=== PATIENT | female | born 1990 | race Caucasian/White ===

== ENCOUNTER 2018-08-28 10:42 | Emergency (ER) | payer OTHER ==
[~2018-08-28] VITALS: Ht 157.5 cm; Wt 74.8 kg
[2018-08-28 10:52] VITALS: BP 135/70
--- NOTE | 2018-08-28 10:55 | NUR ---
PATIENT PRESENTS TO ED WITH C/O MULTIPLE BUG BITES , PRURITUS X 2 DAYS PT ADDS SLEPT OVER FRIENDS HOUSE ON WEDNESDAY ALONG WITH SONS AND ALL AWOKE WITH MULITPLE BUG BITES THROUGH OUT AND SEVERE PRURITUS DENIES N/V/D; AAOX4 WITH EVEN AND STEADY GAIT; LUNGS CLEAR BL; HR EVEN AND REGULAR; PT DENIES ANY FEVER, CP, SOB, OR COUGH AT THIS TIME; PATIENT STATES PAIN OF 0/10 AT THIS TIME; VSS; PATIENT POSITIONED FOR COMFORT; HOB ELEVATED; BEDRAILS UP X2; BED DOWN. ER MD MADE AWARE OF PT STATUS.
--- NOTE | 2018-08-28 12:00 | NUR ---
Patient discharged with v/s stable. Written and verbal after care instructions given and explained. Patient alert, oriented and verbalized understanding of instructions. Ambulatory with steady gait. All questions addressed prior to discharge. ID band removed. Patient advised to follow up with PMD. Rx of PREDNISONE/BENADRYL given. Patient educated on indication of medication including possible reaction and side effects. Opportunity to ask questions provided and answered.
[2018-08-28 12:01] VITALS: BP 128/76
== END 2018-08-28 12:00 | disposition home or self-care (01) ==
LOC: MED 10:42
DX: R21 Rash and other nonspecific skin eruption (principal)
CPT/HCPCS: 99283

== ENCOUNTER 2020-04-25 23:13 | Emergency (ER) | payer MEDICAID, OTHER ==
[~2020-04-25] VITALS: Ht 157.5 cm; Wt 68.0 kg
[2020-04-25 23:16] VITALS: BP 121/73
--- NOTE | 2020-04-25 23:29 | NUR ---
29 Y/O FEMALE C/O ABD CRAMPING X THIS MORNING. PT STATES SHE IS 5 WKS AND STARTED HAVING LOWER ABD CRAMPING. PT DENIES VAGINAL BLEEDING, VAGINAL DISCHARGE. PT DENIES N/V/D. PT HAS HAD 1 , 1 MISCARRIAGE. PT BREATHING EVEN AND UNLABORED. VSS. PT RESTING IN BED AT LOWEST POSITION, HOB ELEVATED, SIDE RAIL X1. PMH: NONE RX: NONE NKA
--- NOTE | 2020-04-25 23:31 | NUR ---
PT AMBULATED TO RESTROOM W/ STEADY GAIT.
[2020-04-26 00:11] LABS: BASOPHILS % (AUTO) 0.4 % (0.0-2.0); EOSINOPHILS # (AUTO) 0.2 K/uL (0-0.4); EOSINOPHILS % (AUTO) 2.6 % (0.0-4.0); HEMATOCRIT 39.4 % (36-48); LYMPHOCYTES # (AUTO) 2.4 K/uL (2.5-16.5); LYMPHOCYTES % (AUTO) 29.6 % (20.5-51.1); MEAN CORPUSCULAR HEMOGLOBIN 30 pg (27-31); MEAN CORPUSCULAR HGB CONC 33 g/dL (33-37); MEAN CORPUSCULAR VOLUME 90.9 fL (80-94); MONOCYTES # (AUTO) 0.6 K/uL (0.8-1.0); MONOCYTES % (AUTO) 7.4 % (1.7-9.3); NEUTROPHILS # (AUTO) 4.9 K/uL (1.8-7.7); PLATELET COUNT (AUTO) 282 K/uL (140-450); RED BLOOD CELL COUNT(AUTO) 4.33 MIL/uL (4.20-5.40); RED CELL DISTRIBUTION WIDTH 13.7 % (11.6-13.7); WHITE BLOOD COUNT (AUTO) 8.2 K/uL (4.8-10.8)
[2020-04-26 00:19] LABS: APPEARANCE,URINE HAZY (CLEAR); BILIRUBIN,URINE NEGATIVE (NEGATIVE); BLOOD, URINE NEGATIVE (NEGATIVE); COLOR,URINE YELLOW (YELLOW); LEUKOCYTE ESTERASE ,URINE TRACE (NEGATIVE); NITRITE, URINE NEGATIVE (NEGATIVE); UGLUCOSE NEGATIVE (NEGATIVE)
--- NOTE | 2020-04-26 00:19 | NUR ---
DR. THACKER AT BEDSIDE FOR EVALUATION.
[2020-04-26 00:40] LABS: RBC,URINE 0-5 /HPF (0-5)
--- NOTE | 2020-04-26 01:13 | NUR ---
PT SLEEPING IN BED, LOCKED AND AT LOWEST POSITION, HOB ELEVATED , SIDE RAILS X1.
--- NOTE | 2020-04-26 01:29 | NUR ---
US AT BEDSIDE.
[2020-04-26 01:52] VITALS: BP 128/80
== END 2020-04-26 01:52 | disposition home or self-care (01) ==
LOC: MED 23:13
DX: O23.41 Unspecified infection of urinary tract in pregnancy, first trimester (principal); O20.0 Threatened abortion; R10.30 Lower abdominal pain, unspecified; Z3A.01 Less than 8 weeks gestation of pregnancy; Z98.890 Other specified postprocedural states
CPT/HCPCS: 36415; 76817; 81001; 81025; 84702; 85025; 86900; 86901; 87086; 99284; Q0092; 99283

== ENCOUNTER 2020-05-06 15:56 | Emergency (ER) | payer MEDICAID ==
[~2020-05-06] VITALS: Ht 157.5 cm; Wt 70.3 kg
[2020-05-06 16:09] VITALS: BP 121/74
--- NOTE | 2020-05-06 16:12 | NUR ---
urine cup handed to pt for sample
--- NOTE | 2020-05-06 16:30 | NUR ---
PATIENT LEFT WITHOUT BEING SEEN BY DR. RIOS . NO FURTHER CARE PROVIDED FOR PATIENT.
--- NOTE | 2020-05-06 16:30 | NUR ---
1 CALL N/A IN ER LOBBY
--- NOTE | 2020-05-06 17:43 | NUR ---
1730 2ND CALL N/A, 3RD CALL N/A
[2020-05-06] MEDS ORDERED: ONDANSETRON 4 MG ODT PO ONE (17:45)
== END 2020-05-06 16:30 | disposition left against medical advice (07) ==
LOC: MED 15:56
DX: O21.8 Other vomiting complicating pregnancy (principal); O26.899 Other specified pregnancy related conditions, unspecified trimester; R42 Dizziness and giddiness; Z53.21 Procedure and treatment not carried out due to patient leaving prior to being seen by health care provider

== ENCOUNTER 2020-06-02 00:38 | Emergency (ER) | payer MEDICAID ==
[~2020-06-02] VITALS: Ht 157.5 cm; Wt 68.9 kg
[2020-06-02 00:52] VITALS: BP 123/75
--- NOTE | 2020-06-02 00:58 | NUR ---
30 Y/O FEMALE C/O AT 11PM PT FELT VAGINAL DISCHARGE AND WENT TO RESTROOM AND NOTICED BRIGHT RED BLOOD IN THE TOILET; NO ABD CRAMPING OR PAIN; DENIES N/V/D; SKIN IS PINK/WARM/DRY; AAOX4 WITH EVEN AND STEADY GAIT; LUNGS CLEAR BL; HR EVEN AND REGULAR; PT DENIES ANY FEVER, CP, SOB, OR COUGH AT THIS TIME; PATIENT STATES PAIN OF 0/10 AT THIS TIME; VSS; PMH: PT DENIES NKA
--- NOTE | 2020-06-02 01:06 | NUR ---
AMBULATED TO ER BED 1
--- NOTE | 2020-06-02 01:42 | NUR ---
PT TAKEN TO US.
--- NOTE | 2020-06-02 02:07 | NUR ---
Brooklynn gee in [facility] - 06/02/20 at 0208 by [facility] pt returned back from ct via w/c.
--- NOTE | 2020-06-02 02:08 | NUR ---
pt returned back from US via w/c.
[2020-06-02 02:45] VITALS: BP 123/75
--- NOTE | 2020-06-02 02:45 | NUR ---
Patient discharged with v/s stable. Written and verbal after care instructions given and explained. Patient verbalized understanding. Ambulatory with steady gait. All questions addressed prior to discharge. Advised to follow up with PMD.
== END 2020-06-02 02:45 | disposition home or self-care (01) ==
LOC: MED 00:38
DX: O20.8 Other hemorrhage in early pregnancy (principal); Z3A.08 8 weeks gestation of pregnancy
CPT/HCPCS: 76801; 81002; 81025; 99284

== ENCOUNTER 2021-06-18 19:18 | Emergency (ER) | payer MEDICAID ==
[~2021-06-18] VITALS: Ht 157.5 cm; Wt 74.4 kg
[2021-06-18 19:25] VITALS: BP 126/72
[2021-06-18] MEDS ORDERED: METOCLOPRAMIDE 10 MG TAB PO ONE (20:00)
[2021-06-18] MEDS ORDERED: PYRIDOXINE 50 MG TAB ONE (20:10)
[2021-06-18] MEDS ORDERED: ACETAMINOPHEN EXTRA STRENGTH 500 MG TAB PO ONE (21:25)
[2021-06-19] MEDS ORDERED: PYRIDOXINE 50 MG TAB PO SCH (09:00)
== END 2021-06-18 22:29 | disposition home or self-care (01) ==
LOC: MED 19:18
DX: R51.9 Headache, unspecified (principal); R11.0 Nausea; Z98.890 Other specified postprocedural states
CPT/HCPCS: 81002; 81025; 99284; J8597